=== PATIENT | female | born 1985 | race Caucasian/White ===

== ENCOUNTER 2017-07-05 14:14 | Emergency (ER) | payer SELFPAY, OTHER ==
[2017-07-05] MEDS: METOCLOPRAMIDE 10 MG TAB PO (14:56)
[2017-07-05] MEDS: IBUPROFEN 600 MG TAB PO (14:57)
== END 2017-07-05 15:50 | disposition home or self-care (01) ==
LOC: M ED 14:14
DX: F07.81 Postconcussional syndrome (principal); F90.9 Attention-deficit hyperactivity disorder, unspecified type; F41.9 Anxiety disorder, unspecified; F33.9 Major depressive disorder, recurrent, unspecified; Z79.899 Other long term (current) drug therapy; Z88.1 Allergy status to other antibiotic agents
CPT/HCPCS: 70450

== ENCOUNTER → 2019-07-23 | Outpatient (CLI) | payer OTHER ==
[~2019-07-23] MED LIST: AMPHET/DEXTR; ATEN25TA PO; ATIV2TAB PO; BENA25CA PO; BUPR300T92; BUSP10TA PO; CELE40TA PO; CETI10CH PO; CHLO10CA PO; DIAZ10TA2; E-Z-PAQUE 96% w/w SUSP 176GM BTL As Ordered ONE; FOLI1TAB86 PO; LAMO200T3; LATU1TAB PO; MOME50SP; TRAZ50TA2 PO; VITA100T2 PO; VITMTA PO; ZOLO50TA PO
--- NOTE | 2019-07-23 17:17 | REP ---
Examination Requested: SBFT Reason For Exam: I B S with constipation Small Bowel Follow Through The procedure was performed by LOWELL Hines, under the direct supervision of Dr. Allen. The images were reviewed with Dr. Allen. The pole setter film shows no organomegaly or pathological masses. The intestinal gas pattern appears normal. The barium was administered and the barium column was followed through the small bowel to the level of the terminal ileum. Small bowel transit time was approximately 90 minutes. During fluoroscopy gentle palpation shows all loops are freely mobile and pliable. There are no fixed or angulated loops. The small bowel mucosal pattern is normal in course and caliber. There is no transition to suggest a partial small-bowel obstruction. Spot filming of the terminal ileum shows it to be unremarkable. Impression: 1. Unremarkable small bowel follow-through 0.4 minutes of fluoroscopy time was utilized for this procedure. Some fluoroscopic images are performed with last image hold technology. These images require no additional radiation. Reviewed by LOWELL Orantes 07/23/2019 02:14 P Electronically Signed by Jasmeet Allen MD 07/23/2019 05:09 P
== END ==
LOC: M RAD 07:33
PROVIDERS: ATTEND Internal Medicine Gastroenterology
DX: K58.1 Irritable bowel syndrome with constipation (principal); R93.3 Abnormal findings on diagnostic imaging of other parts of digestive tract

== ENCOUNTER 2019-08-19 10:43 | Day surgery (SDC) | payer OTHER ==
[~2019-08-19] VITALS: Ht 149.9 cm; Wt 67.1 kg
[~2019-08-19 10:43] MED LIST changes: +ADDE30CA3 PO; +ALPR2TAB3 PO; -E-Z-PAQUE 96% w/w SUSP 176GM BTL As Ordered ONE; +LIDOCAINE 2% INJ 100 MG/5 ML SDV (FOR ANES.) As Ordered ONE; +LINZ290C PO; +MEDR150I10 IM; +NS 1,000 ML IV ONE; +PANT40TA3 PO; +TRUL3TAB PO; +VALA500T5 PO; +propofoL 200 MG/20 ML VIAL As Ordered ONE
[2019-08-19] MEDS ORDERED: DOXE50CA PO (11:32)
[2019-08-19] MEDS ORDERED: OMEP40CA97 PO (11:32)
[2019-08-19] MEDS ORDERED: BUPR1TAB52 PO (11:32)
[2019-08-19] MEDS ORDERED: fentaNYL 100 MCG/2 ML INJECTION (J3010) As Ordered ONE (12:07)
--- NOTE | 2019-08-19 12:21 | ROOR ---
Patient Name: Miroslava Pulliam Procedure Date: 08/19/2019 11:42 AM Date of : 1985 Age: 34 Room: [facility] Gender: Female Note Status: Finalized Procedure: Upper GI endoscopy Indications: Abdominal pain, Abnormal CT of the GI tract Providers: Nathan CASTELLANOS MD Referring MD: GUDELIA STAPLES MD Requesting Provider: Medicines: Monitored Anesthesia Care Complications: No immediate complications. Procedure: Pre-Anesthesia Assessment: - The heart rate, respiratory rate, oxygen saturations, blood pressure, adequacy of pulmonary ventilation, and response to care were monitored throughout the procedure. The Endoscope was introduced through the mouth, and advanced to the third part of duodenum. The upper GI endoscopy was accomplished without difficulty. The patient tolerated the procedure well. Findings: The esophagus was normal. The stomach was normal. The examined duodenum was normal. Biopsies for histology were taken with a cold forceps in the second portion of the duodenum and in the third portion of the duodenum for evaluation of celiac disease. Impression: - Normal esophagus. - Normal stomach. - Normal examined duodenum. - Biopsies were taken with a cold forceps for evaluation of celiac disease. Recommendation: - Observe patient's clinical course. - Telephone endoscopist for pathology results in 2 weeks. Nathan Castellanos MD Nathan CASTELLANOS MD 08/19/2019 12:21:17 PM Electronically signed by Nathan CASTELLANOS MD Number of Addenda: 0 Note Initiated On: 08/19/2019 11:42 AM Estimated Blood Loss: Estimated blood loss: none.
--- NOTE | 2019-08-19 12:43 | ROOR ---
Patient Name: Miroslava Pulliam Procedure Date: 08/19/2019 11:43 AM Date of : 1985 Age: 34 Gender: Female Note Status: Finalized Procedure: Colonoscopy Indications: Suspected irritable bowel syndrome, Change in bowel habits, Constipation Providers: Nathan CASTELLANOS MD Referring MD: GUDELIA STAPLES MD Requesting Provider: Medicines: Monitored Anesthesia Care Complications: No immediate complications. Procedure: Pre-Anesthesia Assessment: - The heart rate, respiratory rate, oxygen saturations, blood pressure, adequacy of pulmonary ventilation, and response to care were monitored throughout the procedure. The Colonoscope was introduced through the anus and advanced to 10 cm into the ileum. The colonoscopy was performed without difficulty. The patient tolerated the procedure well. The quality of the bowel preparation was adequate. Findings: The perianal and digital rectal examinations were normal. A diffuse area of mild melanosis was found in the entire colon. Small Internal Hemorrhoids. The entire examined colon appeared normal on direct and retroflexion views. The terminal ileum appeared normal. Biopsies for histology were taken with a cold forceps from the entire colon for evaluation of microscopic colitis. Impression: - Melanosis in the colon. - Small Internal Hemorrhoids. - The entire examined colon is normal on direct and retroflexion views. - The examined portion of the ileum was normal. - Biopsies were taken with a cold forceps from the entire colon for evaluation of microscopic colitis. - (Irritable Bowel Syndrome/IBS-C suspected.) Recommendation: - Continue present medications. - Await pathology results. - Telephone endoscopist for pathology results in 2 weeks. - Continue Trulance. You may add Miralax 1-2 doses daily for incomplete response. Nathan Castellanos MD Nathan CASTELLANOS MD 08/19/2019 12:42:45 PM Electronically signed by Nathan CASTELLANOS MD Number of Addenda: 0 Note Initiated On: 08/19/2019 11:43 AM Estimated Blood Loss: Estimated blood loss: none.
[2019-08-19 13:05] VITALS: BP 123/75
== END 2019-08-19 13:59 | disposition home or self-care (01) ==
LOC: M OPP 10:43
PROVIDERS: ATTEND Internal Medicine Gastroenterology
DX: K63.89 Other specified diseases of intestine (principal); K64.8 Other hemorrhoids; R19.4 Change in bowel habit; R93.3 Abnormal findings on diagnostic imaging of other parts of digestive tract; R10.9 Unspecified abdominal pain; Z79.899 Other long term (current) drug therapy; Z88.1 Allergy status to other antibiotic agents; Z91.89 Other specified personal risk factors, not elsewhere classified
CPT/HCPCS: 43239; 45380; 88305; J3010